=== PATIENT | male | born 1990 | race Two or more races ===

== ENCOUNTER 2020-08-03 05:59 | Inpatient (IN) | payer MEDICAID ==
[~2020-08-03] VITALS: Ht 170.2 cm; Wt 89.9 kg
[2020-08-03] MEDS ORDERED: iohexol 350MG/ML 100ml bottle IV ONE (06:21)
--- NOTE | 2020-08-03 06:35 | NUR ---
Father Nish, bedside.
--- NOTE | 2020-08-03 06:40 | NUR ---
US underway; family bedside
[2020-08-03 06:43] LABS: BASOPHILS # (AUTO) 0.2 X10'3 (0-0.2); BASOPHILS % (AUTO) 1.4 % (0-1); EOSINOPHILS # (AUTO) 0.1 X10'3 (0-0.9); EOSINOPHILS % (AUTO) 0.9 % (0-6); HEMATOCRIT 53.8 % (42.0-52.0); LYMPHOCYTES # (AUTO) 1.8 X10'3 (1.1-4.8); LYMPHOCYTES % (AUTO) 13.4 % (21-51); MEAN CORPUSCULAR HEMOGLOBIN 30.2 PG (27.0-31.0); MEAN CORPUSCULAR HGB CONC 33.6 g/dL (33.0-36.5); MEAN CORPUSCULAR VOLUME 89.8 FL (78-98); MEAN PLATELET VOLUME 8.3 FL (7.4-10.4); MONOCYTES # (AUTO) 1.1 X10'3 (0-0.9); MONOCYTES % (AUTO) 8.7 % (2-12); NEUTROPHILS % (AUTO) 75.6 % (42-75); PLATELET COUNT 300 X10'3 (140-440); RED BLOOD COUNT 5.99 X10'6 (4.70-6.10); RED CELL DISTRIBUTION WIDTH 16.4 % (11.5-14.5); WHITE BLOOD COUNT 13.2 X10'3 (4.5-11.0)
[2020-08-03 06:48] LABS: HEMOGLOBIN 18.1 g/dl (14.0-17.9)
[2020-08-03 06:58] LABS: ALANINE AMINOTRANSFERASE 49 U/L (12-78); ALBUMIN 3.4 G/DL (3.4-5.0); ALBUMIN/GLOBULIN RATIO 0.7 (1.1-1.5); ALKALINE PHOSPHATASE 88 IU/L (46-116); ANION GAP 11 (8-16); ASPARTATE AMINO TRANSFERASE 42 U/L (10-37); BILIRUBIN,TOTAL 0.6 MG/DL (0.1-1.0); BLOOD UREA NITROGEN 24 MG/DL (7-18); BUN/CREATININE RATIO 18.6 (5.4-32.0); CALCIUM 8.9 MG/DL (8.5-10.1); CHLORIDE 101 MMOL/L (99-107); CREATININE 1.29 MG/DL (0.60-1.10); GLUCOSE 167 MG/DL (70-104); POTASSIUM 4.2 MMOL/L (3.5-5.1); SODIUM 135 MMOL/L (135-145); TOTAL CARBON DIOXIDE 23.3 MMOL/L (24-32); TOTAL PROTEIN 8.4 G/DL (6.4-8.2); eGFR 65 ML/MIN
[2020-08-03 07:10] LABS: ETHANOL < 0.010 GM/DL (0.0-0.010)
--- NOTE | 2020-08-03 07:27 | NUR ---
bedside echo underway
--- NOTE | 2020-08-03 07:35 | NUR ---
[facility]
[2020-08-03 07:36] LABS: URINE AMPHETAMINE SCREEN NEGATIVE (Neg); URINE BARBITUATE SCREEN NEGATIVE (Neg); URINE BENZODIAZEPINES SCREEN NEGATIVE (Neg); URINE CANNABINOID SCREEN NEGATIVE (Neg); URINE COCAINE SCREEN NEGATIVE (Neg); URINE METHADONE SCREEN NEGATIVE (Neg); URINE OPIATE SCREEN NEGATIVE (Neg); URINE PHENCYCLIDINE SCREEN NEGATIVE (Neg)
[2020-08-03 07:39] LABS: CLARITY,URINE CLEAR (Clear); COLOR,URINE YELLOW (Yellow); GLUCOSE, URINE NEGATIVE (Neg); KETONES,URINE NEGATIVE (Neg); LEUKOCYTE ESTERASE ,URINE NEGATIVE (Neg); NITRITES, URINE NEGATIVE (Neg); OCCULT BLOOD,URINE NEGATIVE (Neg); PROTEIN,URINE TRACE mg/dl (Neg); UROBILINOGEN,URINE 0.2 E.U/dL (0.2-1.0)
[2020-08-03 07:44] LABS: UA COLLECTION TYPE VOIDED
[2020-08-03 07:46] LABS: BACTERIA,URINE NONE SEEN /HPF (Neg); MUCUS STRANDS NONE SEEN /LPF (Neg); RBC,URINE NONE SEEN /HPF (0-2); SQUAMOUS EPITHELIAL CELL,UR NONE SEEN /LPF (FEW); WBC,URINE 0-4 /HPF (0-4)
[2020-08-03] MEDS ORDERED: furosemide 10 MG/1 ML 10ml inj IV ONE (10:00)
[2020-08-03] MEDS ORDERED: metoclopramide 5 mg/ml inj IV ONE (10:25)
[2020-08-03] MEDS ORDERED: acetaminophen 325mg tablet PO PRN ×2 (10:45)
[2020-08-03] MEDS ORDERED: magnesium hydroxide 30ml (MOM) UD suspension PO PRN (10:45)
[2020-08-03] MEDS ORDERED: ondansetron/PF 4mg/2ml inj IV PRN (10:45)
[2020-08-03] MEDS ORDERED: morphine 2 MG/ML inj. syringe IV PRN (10:45)
[2020-08-03] MEDS ORDERED: potassium Cl 20 mEq SR tablet PO PRN ×2 (10:45)
[2020-08-03] MEDS ORDERED: potassium Cl 40MEQ/1/2NS 520ml 520 ML IV PRN ×2 (10:45)
[2020-08-03] MEDS ORDERED: mag hydrox/Alum hydrox/simeth 30ml oral suspension PO PRN (10:45)
[2020-08-03] MEDS ORDERED: magnesium 4gm in 100ml NS 100 ML IV PRN (10:45)
[2020-08-03] MEDS ORDERED: HYDROcodone/acetaminophen 5mg/325mg tablet PO PRN (10:45)
[2020-08-03] MEDS ORDERED: magnesium 2GM in 50ml NS 50 ML IV PRN (10:45)
[2020-08-03] MEDS ORDERED: magnesium Cl slow-release 64mg tablet PO PRN (10:45)
[2020-08-03] MEDS ORDERED: albuterol 2.5 MG/3 ML nebule NEB SCH (12:00)
[2020-08-03] MEDS ORDERED: methylPREDNISolone sod succ/PF 40mg inj. IV SCH (12:05)
[2020-08-03 12:34] VITALS: BP 167/93
[2020-08-03] MEDS ORDERED: NO HOME MEDS (12:52)
--- NOTE | 2020-08-03 16:18 | NUR ---
PAGER ID: [phone] MESSAGE: [phone] anahi bower , pt bp is170/113 pulse rate 112, will you add something to help with the htn
[2020-08-03] MEDS ORDERED: albuterol 2.5 MG/3 ML nebule NEB PRN (16:25)
[2020-08-03 16:28] VITALS: BP 170/113
[2020-08-03] MEDS: lisinopril 20mg tablet PO SCH (16:52)
[2020-08-03] MEDS: carvedilol 6.25mg tablet PO SCH ×2 (16:53→20:27)
[2020-08-03 18:00] VITALS: BP 131/61
--- NOTE | 2020-08-03 18:14 | NUR ---
Patient in room MED 310. I have received report from Graciela-RAJAN and had the opportunity to ask questions and assume patient care.
[2020-08-03] MEDS ORDERED: methylPREDNISolone sod succ 125mg/2ml vial IV SCH (20:00)
[2020-08-03] MEDS: K and/or MAG REPLACEMENT MC SCH (20:00)
[2020-08-03] MEDS: heparin, porcine 5000 units/ml vial SQ SCH (20:29)
[2020-08-03] MEDS ORDERED: temazepam 15mg capsule PO PRN (21:00)
[2020-08-03 22:00] VITALS: BP 134/72
--- NOTE | 2020-08-04 01:11 | NUR ---
[employer] TENDER CALLED AND REPORTED A THIRD DEGREE BLOCK, I CALLED DR BOSWELL WHO ORDERED A 12 LEAD EKG, CAME AND REVIEWED EKG, STOPPED COREG.
[2020-08-04 02:00] VITALS: BP 134/83
[2020-08-04 06:30] VITALS: BP 148/88
[2020-08-04 06:34] LABS: ALBUMIN 3.2 G/DL (3.4-5.0); ANION GAP 9 (8-16); BLOOD UREA NITROGEN 34 MG/DL (7-18); CALCIUM 9.4 MG/DL (8.5-10.1); CHLORIDE 100 MMOL/L (99-107); CREATININE 1.31 MG/DL (0.60-1.10); GLUCOSE 113 MG/DL (70-104); POTASSIUM 4.5 MMOL/L (3.5-5.1); SODIUM 135 MMOL/L (135-145); TOTAL CARBON DIOXIDE 26.4 MMOL/L (24-32); eGFR 63 ML/MIN
[2020-08-04 06:38] LABS: BASOPHILS # (AUTO) 0.1 X10'3 (0-0.2); BASOPHILS % (AUTO) 0.5 % (0-1); EOSINOPHILS % (AUTO) 0.3 % (0-6); LYMPHOCYTES # (AUTO) 2.3 X10'3 (1.1-4.8); LYMPHOCYTES % (AUTO) 13.4 % (21-51); MEAN CORPUSCULAR HEMOGLOBIN 29.4 PG (27.0-31.0); MEAN CORPUSCULAR HGB CONC 32.7 g/dL (33.0-36.5); MEAN CORPUSCULAR VOLUME 89.9 FL (78-98); MEAN PLATELET VOLUME 8.3 FL (7.4-10.4); MONOCYTES # (AUTO) 1.4 X10'3 (0-0.9); MONOCYTES % (AUTO) 8.6 % (2-12); NEUTROPHILS % (AUTO) 77.2 % (42-75); PLATELET COUNT 339 X10'3 (140-440); RED BLOOD COUNT 6.12 X10'6 (4.70-6.10); RED CELL DISTRIBUTION WIDTH 16.4 % (11.5-14.5); WHITE BLOOD COUNT 16.8 X10'3 (4.5-11.0)
--- NOTE | 2020-08-04 07:02 | NUR ---
Problems reprioritized. Patient report given, questions answered & plan of care reviewed with Pat-RN.
[2020-08-04] MEDS ORDERED: furosemide 40mg/4ml inj IV SCH (08:00)
[2020-08-04] MEDS ORDERED: CefTRIAXone 2gm/D5W 50ml BAG 50 ML IV SCH (08:00)
[2020-08-04] MEDS: K and/or MAG REPLACEMENT MC SCH (08:00)
[2020-08-04] MEDS: lisinopril 20mg tablet PO SCH (08:55)
[2020-08-04] MEDS: heparin, porcine 5000 units/ml vial SQ SCH (08:56)
[2020-08-04 11:00] VITALS: BP 128/74
[2020-08-04] MEDS ORDERED: FURO20TA4 PO (15:09)
[2020-08-04] MEDS ORDERED: LISI20TA28 PO (15:09)
[2020-08-04] MEDS ORDERED: ASPI-1265 PO (15:10)
[2020-08-04] MEDS ORDERED: CARV3.12 PO (15:12)
[2020-08-04] MEDS ORDERED: carVEDilol 3.125mg tablet PO ONE (18:00)
[2020-08-04] MEDS ORDERED: lactobacillus rhamnosus 10,000 MMU CELLS/CAPSULE PO SCH (20:00)
== END 2020-08-04 18:36 | disposition home or self-care (01) | DRG 194 ==
LOC: ER 06:00 → ED HOLD 10:42 → EDBEDREQ 11:19 → MED 3N 11:43
PROVIDERS: ADMIT Internal Medicine; ATTEND Internal Medicine
DX: I50.23 Acute on chronic systolic (congestive) heart failure (principal); I27.20 Pulmonary hypertension, unspecified; J44.9 Chronic obstructive pulmonary disease, unspecified; M1A.9XX0 Chronic gout, unspecified, without tophus (tophi); Z20.822 Contact with and (suspected) exposure to COVID-19
CPT/HCPCS: 36415; 71045; 71275; 80048; 80053; 80305; 80320; 81001; 83735; 83880; 84484; 85025; 87081; 87635; 93005; 93306; 93970; 96375; 97161; 97530; 99285; G0378; J0696; J1644; J1940; J2765; J2920; Q9967

== ENCOUNTER 2020-10-17 16:43 | Inpatient (IN) | payer MEDICAID ==
[~2020-10-17] VITALS: Ht 170.2 cm; Wt 104.2 kg
[~2020-10-17 16:43] MED LIST: CARV3.12 PO; FURO20TA4 PO; LISI20TA28 PO; NO HOME MEDS
[2020-10-17 17:38] LABS: BASOPHILS # (AUTO) 0.1 X10'3 (0-0.2); EOSINOPHILS # (AUTO) 0.4 X10'3 (0-0.9); EOSINOPHILS % (AUTO) 3.8 % (0-6); HEMATOCRIT 45.9 % (42.0-52.0); LYMPHOCYTES # (AUTO) 1.5 X10'3 (1.1-4.8); LYMPHOCYTES % (AUTO) 14.8 % (21-51); MEAN CORPUSCULAR HEMOGLOBIN 29.4 PG (27.0-31.0); MEAN CORPUSCULAR HGB CONC 32.7 g/dL (33.0-36.5); MEAN PLATELET VOLUME 7.3 FL (7.4-10.4); MONOCYTES # (AUTO) 0.7 X10'3 (0-0.9); MONOCYTES % (AUTO) 7.2 % (2-12); NEUTROPHILS # (AUTO) 7.6 X10'3 (1.8-7.7); NEUTROPHILS % (AUTO) 73.2 % (42-75); PLATELET COUNT 449 X10'3 (140-440); RED CELL DISTRIBUTION WIDTH 17.8 % (11.5-14.5); WHITE BLOOD COUNT 10.4 X10'3 (4.5-11.0)
[2020-10-17 17:52] LABS: ALANINE AMINOTRANSFERASE 50 U/L (12-78); ALBUMIN/GLOBULIN RATIO 0.6 (1.1-1.5); ALKALINE PHOSPHATASE 114 IU/L (46-116); ANION GAP 7 (8-16); ASPARTATE AMINO TRANSFERASE 27 U/L (10-37); BILIRUBIN,TOTAL 0.5 MG/DL (0.1-1.0); BLOOD UREA NITROGEN 15 MG/DL (7-18); BUN/CREATININE RATIO 13.2 (5.4-32.0); CALCIUM 8.8 MG/DL (8.5-10.1); CHLORIDE 105 MMOL/L (99-107); CREATININE 1.14 MG/DL (0.60-1.10); POTASSIUM 3.8 MMOL/L (3.5-5.1); SODIUM 137 MMOL/L (135-145); TOTAL CARBON DIOXIDE 24.9 MMOL/L (24-32); TOTAL PROTEIN 7.9 G/DL (6.4-8.2); eGFR 74 ML/MIN
[2020-10-17] MEDS: niCARDipine-NS 40mg/200ml IVPB 200 ML IV SCH ×2 (17:55→18:59)
[2020-10-17 18:19] LABS: ETHANOL < 0.010 GM/DL (0.0-0.010)
[2020-10-17 18:48] LABS: GLUCOSE 140 MG/DL (70-104)
[2020-10-17] MEDS ORDERED: furosemide 10 MG/1 ML 10ml inj IV ONE (19:30)
[2020-10-17] MEDS ORDERED: HYDROcodone/acetaminophen 5mg/325mg tablet PO PRN (20:55)
[2020-10-17] MEDS ORDERED: HYDROmorphone inj. 0.5 MG/0.5 ML DISP.SYRIN IV PRN (20:55)
[2020-10-17] MEDS ORDERED: HYDROcodone/acetaminophen 10/325mg tab PO PRN (20:55)
[2020-10-17] MEDS ORDERED: morphine 2 MG/ML inj. syringe IV PRN ×2 (20:55)
[2020-10-17] MEDS ORDERED: diphenhydrAMINE 25mg capsule PO PRN (20:55)
[2020-10-17] MEDS ORDERED: acetaminophen 650mg rectal suppository RC PRN (20:55)
[2020-10-17] MEDS ORDERED: bisacodyl 10mg suppository rectal RC PRN (20:55)
[2020-10-17] MEDS ORDERED: magnesium hydroxide 30ml (MOM) UD suspension PO PRN (20:55)
[2020-10-17] MEDS ORDERED: ondansetron/PF 4mg/2ml inj IV PRN (20:55)
[2020-10-17] MEDS ORDERED: ondansetron 4mg rapidly disintigrating tab PO PRN (20:55)
[2020-10-17] MEDS ORDERED: diphenhydrAMINE 50 mg/ml inj IV PRN (20:55)
[2020-10-17] MEDS ORDERED: acetaminophen 325mg tablet PO PRN ×2 (20:55)
[2020-10-17] MEDS ORDERED: mag hydrox/Alum hydrox/simeth 30ml oral suspension PO PRN (20:55)
[2020-10-17] MEDS ORDERED: temazepam 15mg capsule PO PRN (21:00)
[2020-10-17 21:34] LABS: D-DIMER 0.69 MG/L FEU (0-0.50); PARTIAL THROMBOPLASTIN TIME 26 SECONDS (22-32)
[2020-10-17 21:55] LABS: CREATINE KINASE 203 U/L (39-308); LIPASE 425 U/L (73-393); MAGNESIUM 1.9 MG/DL (1.5-2.4); PHOSPHORUS 3.7 MG/DL (2.3-4.5)
[2020-10-17 22:00] LABS: HEMOGLOBIN A1C 7.1 % (4.5-6.2)
[2020-10-18 05:50] LABS: BASOPHILS # (AUTO) 0.1 X10'3 (0-0.2); BASOPHILS % (AUTO) 1.2 % (0-1); EOSINOPHILS # (AUTO) 0.3 X10'3 (0-0.9); EOSINOPHILS % (AUTO) 2.4 % (0-6); HEMATOCRIT 40.9 % (42.0-52.0); HEMOGLOBIN 13.4 g/dl (14.0-17.9); LYMPHOCYTES # (AUTO) 1.9 X10'3 (1.1-4.8); LYMPHOCYTES % (AUTO) 18.1 % (21-51); MEAN CORPUSCULAR HEMOGLOBIN 29.6 PG (27.0-31.0); MEAN CORPUSCULAR HGB CONC 32.9 g/dL (33.0-36.5); MEAN CORPUSCULAR VOLUME 90.2 FL (78-98); MEAN PLATELET VOLUME 7.2 FL (7.4-10.4); MONOCYTES # (AUTO) 0.9 X10'3 (0-0.9); MONOCYTES % (AUTO) 8.2 % (2-12); NEUTROPHILS # (AUTO) 7.4 X10'3 (1.8-7.7); NEUTROPHILS % (AUTO) 70.1 % (42-75); PLATELET COUNT 380 X10'3 (140-440); RED BLOOD COUNT 4.53 X10'6 (4.70-6.10); RED CELL DISTRIBUTION WIDTH 17.5 % (11.5-14.5); WHITE BLOOD COUNT 10.6 X10'3 (4.5-11.0)
[2020-10-18 07:15] LABS: ALANINE AMINOTRANSFERASE 50 U/L (12-78); ALBUMIN/GLOBULIN RATIO 0.6 (1.1-1.5); ALKALINE PHOSPHATASE 80 IU/L (46-116); ANION GAP 5 (8-16); ASPARTATE AMINO TRANSFERASE 40 U/L (10-37); BILIRUBIN,TOTAL 0.7 MG/DL (0.1-1.0); BLOOD UREA NITROGEN 16 MG/DL (7-18); BUN/CREATININE RATIO 14.8 (5.4-32.0); CALCIUM 8.8 MG/DL (8.5-10.1); CHLORIDE 104 MMOL/L (99-107); CREATININE 1.08 MG/DL (0.60-1.10); GLUCOSE 101 MG/DL (70-104); POTASSIUM 4.1 MMOL/L (3.5-5.1); SODIUM 135 MMOL/L (135-145); TOTAL CARBON DIOXIDE 26.2 MMOL/L (24-32); TOTAL PROTEIN 7.8 G/DL (6.4-8.2); eGFR 79 ML/MIN
[2020-10-18 07:18] LABS: CHOL/HDL RATIO 5.1 (0.00-4.99); CHOLESTEROL 214 MG/DL (0-200); HDL CHOLESTEROL 42 MG/DL (35-60); LDL CHOLESTEROL 138 MG/DL (50-100); TRIGLYCERIDES 110 MG/DL (20-135)
--- NOTE | 2020-10-18 07:20 | NUR ---
Patient in room ED 11. I have received report from RAJAN Marsh and had the opportunity to ask questions and awaiting pts arrival from ED.
[2020-10-18 07:50] VITALS: BP 160/80
--- NOTE | 2020-10-18 07:55 | NUR ---
Pt arrived from ED, ambulated from wheelchair to bed with standby assist. Alert and Oriented x4. BLL, SRx2, CL within reach, non skid socks on. MRSA swab collected, 2 RN skin check complete. First set of vitals complete.
[2020-10-18] MEDS ORDERED: carVEDilol 3.125mg tablet PO SCH (08:00)
[2020-10-18] MEDS ORDERED: furosemide 10 MG/1 ML 10ml inj IV SCH (08:00)
--- NOTE | 2020-10-18 08:29 | NUR ---
Paged Dr Sifuentes PAGER ID: [phone] MESSAGE: Caity Mayberry [id number] FYI Pt's Trops are elevating 0.07, 0.10, 0.13, 0.27 ? Please advise. Thank you Britni PCU [id number]
[2020-10-18] MEDS: aspirin 81mg tab.chew PO SCH (08:55)
[2020-10-18] MEDS: lisinopril 20mg tablet PO SCH (08:58)
[2020-10-18] MEDS: docusate sod 100mg capsule PO SCH ×2 (08:59→22:02)
[2020-10-18] MEDS: pantoprazole 40mg Tablet.DR PO SCH (08:59)
[2020-10-18] MEDS ORDERED: magnesium Cl slow-release 64mg tablet PO PRN (09:00)
[2020-10-18] MEDS ORDERED: potassium Cl 40MEQ/1/2NS 520ml 520 ML IV PRN (09:00)
[2020-10-18] MEDS ORDERED: heparin 10,000 units/1 ML INJ IV ONE (09:00)
[2020-10-18] MEDS ORDERED: heparin 25,000 UNIT/250ml bag 250 ML IV SCH ×3 (09:00→14:10)
[2020-10-18] MEDS ORDERED: magnesium 4gm in 100ml NS 100 ML IV PRN (09:00)
[2020-10-18] MEDS ORDERED: heparin 10,000 units/1 ML INJ IV PRN ×2 (09:00→14:10)
[2020-10-18] MEDS: atorvastatin 20mg tablet PO SCH (09:00)
[2020-10-18] MEDS ORDERED: potassium Cl 20 mEq SR tablet PO PRN ×2 (09:00)
[2020-10-18] MEDS: heparin, porcine 5000 units/ml vial SQ SCH ×2 (09:01)
[2020-10-18] MEDS ORDERED: metoprolol succinate 25mg (24-HOUR) SR. Tablet PO SCH (09:05)
[2020-10-18] MEDS ORDERED: hydrALAZINE 20mg/ml inj. IV PRN (09:05)
[2020-10-18] MEDS ORDERED: spironolactone 25 MG tablet PO SCH (09:05)
[2020-10-18] MEDS ORDERED: iohexol 350MG/ML 100ml bottle IV ONE (10:01)
[2020-10-18 10:26] LABS: CLARITY,URINE CLEAR (Clear); COLOR,URINE YELLOW (Yellow); GLUCOSE, URINE NEGATIVE (Neg); KETONES,URINE NEGATIVE (Neg); LEUKOCYTE ESTERASE ,URINE NEGATIVE (Neg); NITRITES, URINE NEGATIVE (Neg); OCCULT BLOOD,URINE NEGATIVE (Neg); PH,URINE 6.5 (4.8-8.0); PROTEIN,URINE 100 mg/dl (Neg); UA COLLECTION TYPE CLN CATCH MIDSTREAM
[2020-10-18 10:38] LABS: BACTERIA,URINE NONE SEEN /HPF (Neg); SQUAMOUS EPITHELIAL CELL,UR FEW /LPF (FEW)
[2020-10-18 10:39] LABS: RBC,URINE 0-2 /HPF (0-2); WBC,URINE 0-4 /HPF (0-4)
[2020-10-18 10:41] LABS: URINE AMPHETAMINE SCREEN NEGATIVE (Neg); URINE BARBITUATE SCREEN NEGATIVE (Neg); URINE BENZODIAZEPINES SCREEN NEGATIVE (Neg); URINE CANNABINOID SCREEN NEGATIVE (Neg); URINE COCAINE SCREEN NEGATIVE (Neg); URINE METHADONE SCREEN NEGATIVE (Neg); URINE OPIATE SCREEN NEGATIVE (Neg); URINE PHENCYCLIDINE SCREEN NEGATIVE (Neg)
[2020-10-18 11:00] VITALS: BP 158/74
[2020-10-18] MEDS ORDERED: aminophylline 250mg/10ml inj. IV PRN (11:15)
[2020-10-18] MEDS ORDERED: nitroGLYCERIN 0.4mg SUBLingual tab SL PRN (11:15)
[2020-10-18] MEDS ORDERED: metoprolol tartrate 1mg/ml inj IV PRN (11:15)
[2020-10-18] MEDS ORDERED: regadenoson 0.4mg/5ml syringe IV PRN (11:15)
--- NOTE | 2020-10-18 12:29 | NUR ---
Paged Dr Sifuentes PAGER ID: [phone] MESSAGE: Caity Mayberry [id number] FYI Trop was 0.40, up from 0.30. Thanks Britni PCU [id number]
[2020-10-18] MEDS ORDERED: MESSAGE TO PHARMACY PO ONE (12:35)
[2020-10-18] MEDS ORDERED: dextrose 50%-water 50ml dispensing syringe IV PRN ×2 (12:35)
[2020-10-18] MEDS ORDERED: glucagon, human recombinant 1mg kit SUBCUT PRN (12:35)
[2020-10-18] MEDS ORDERED: dextrose ORAL solution 15 GM/59 ML bottle PO PRN ×2 (12:35)
--- NOTE | 2020-10-18 14:09 | NUR ---
Paged Dr Sifuentes PAGER ID: [phone] MESSAGE: Joan Rafal Malikcordelia [id number] FYI Pt has been having non sustaining Indra into the 30-40's, but back up to the one teens. Thanks Britni [phone] Laurie Nowak, HOME SERVICE DEMONSTRATOR also aware of Bradycardia.
[2020-10-18] MEDS ORDERED: ipratropium/albuterol 3ml nebule NEB PRN (14:30)
[2020-10-18] MEDS ORDERED: methylPREDNISolone sod succ 125mg/2ml vial IV ONE (14:30)
[2020-10-18 15:00] VITALS: BP 132/102
[2020-10-18] MEDS: ipratropium/albuterol 3ml nebule NEB SCH ×3 (15:00→23:00)
--- NOTE | 2020-10-18 15:37 | NUR ---
Paged Bear PAGER ID: [phone] MESSAGE: Caity Mayberry [id number] Do you want a rapid COVID or send out? Thanks Britni [phone]
--- NOTE | 2020-10-18 16:40 | NUR ---
Paged Dr Sifuentes with critical PAGER ID: [phone] MESSAGE: Caity Mayberry [id number] Critical PTT 137. Will stop heparin and follow protocol. Thanks Britni [phone]
--- NOTE | 2020-10-18 16:45 | NUR ---
Pt's PTT came back at 137, stopped Heparin Gtt per protocol for 2 hours. Heparin needs to be restarted at 1845, and decreased 3 units/k/hr. Will inform the NOC nurse.
--- NOTE | 2020-10-18 17:01 | NUR ---
Paged Dr Sifuentes PAGER ID: [phone] MESSAGE: Caity Mayberry [id number] Pt c/o increased SOB, diaphoretic, getting stat EKG, are you in the office so I can have you read it? Thank you Britni eHath [id number]
[2020-10-18 18:00] VITALS: BP 139/84
--- NOTE | 2020-10-18 18:43 | NUR ---
Problems reprioritized. Patient report given, questions answered & plan of care reviewed with RAJAN Henry. Pt sitting up in bed, getting a consult with Dr Yanez.
[2020-10-18] MEDS: K and/or MAG REPLACEMENT MC SCH (20:00)
--- NOTE | 2020-10-18 20:15 | NUR ---
Phoned Dr. Yanez to inform him of patient starting to move into 3rd degree heart block. And did have some of this on day shift as well.
--- NOTE | 2020-10-18 20:35 | NUR ---
Spoke with Dr. Yanez about the rhythm after her looked at two strips. He states the patient is likely in sinus atrial block. No new orders given.
[2020-10-18] MEDS: insulin glargine (Lantus) pen - multi-dose SQ SCH (21:00)
[2020-10-18 22:00] VITALS: BP 133/89
[2020-10-18] MEDS: methylPREDNISolone sod succ/PF 40mg inj. IV SCH (22:02)
[2020-10-18] MEDS: furosemide 10 MG/1 ML 10ml inj IV SCH (22:02)
[2020-10-19 01:39] LABS: BASOPHILS # (AUTO) 0.1 X10'3 (0-0.2); BASOPHILS % (AUTO) 0.6 % (0-1); EOSINOPHILS % (AUTO) 0.1 % (0-6); HEMATOCRIT 50.5 % (42.0-52.0); HEMOGLOBIN 16.4 g/dl (14.0-17.9); LYMPHOCYTES # (AUTO) 0.9 X10'3 (1.1-4.8); LYMPHOCYTES % (AUTO) 8.4 % (21-51); MEAN CORPUSCULAR HEMOGLOBIN 29.2 PG (27.0-31.0); MEAN CORPUSCULAR HGB CONC 32.5 g/dL (33.0-36.5); MEAN PLATELET VOLUME 7.9 FL (7.4-10.4); MONOCYTES # (AUTO) 0.1 X10'3 (0-0.9); MONOCYTES % (AUTO) 0.9 % (2-12); NEUTROPHILS # (AUTO) 9.6 X10'3 (1.8-7.7); PLATELET COUNT 491 X10'3 (140-440); RED BLOOD COUNT 5.61 X10'6 (4.70-6.10); RED CELL DISTRIBUTION WIDTH 17.5 % (11.5-14.5); WHITE BLOOD COUNT 10.7 X10'3 (4.5-11.0)
[2020-10-19 01:58] LABS: ALANINE AMINOTRANSFERASE 73 U/L (12-78); ALBUMIN 3.3 G/DL (3.4-5.0); ALBUMIN/GLOBULIN RATIO 0.6 (1.1-1.5); ALKALINE PHOSPHATASE 80 IU/L (46-116); ANION GAP 13 (8-16); ASPARTATE AMINO TRANSFERASE 51 U/L (10-37); BILIRUBIN,TOTAL 0.8 MG/DL (0.1-1.0); BLOOD UREA NITROGEN 31 MG/DL (7-18); BUN/CREATININE RATIO 17.8 (5.4-32.0); CALCIUM 9.3 MG/DL (8.5-10.1); CHLORIDE 100 MMOL/L (99-107); CREATININE 1.74 MG/DL (0.60-1.10); POTASSIUM 5.5 MMOL/L (3.5-5.1); SODIUM 137 MMOL/L (135-145); TOTAL CARBON DIOXIDE 24.3 MMOL/L (24-32); TOTAL PROTEIN 8.7 G/DL (6.4-8.2); eGFR 46 ML/MIN
[2020-10-19 01:59] LABS: MAGNESIUM 2.2 MG/DL (1.5-2.4); PHOSPHORUS 4.4 MG/DL (2.3-4.5); TROPONIN I 0.21 NG/ML (0.0-0.05)
[2020-10-19 02:00] VITALS: BP 121/96
[2020-10-19] MEDS: methylPREDNISolone sod succ/PF 40mg inj. IV SCH ×4 (02:10→19:30)
[2020-10-19 02:14] LABS: GLUCOSE 196 MG/DL (70-104)
[2020-10-19] MEDS: sodium bicarbonate (8.4%) inj. 50 MEQ in dextrose 5%-water 1,000 ML IV SCH ×2 (05:41→15:18)
[2020-10-19 07:00] VITALS: BP 130/80
--- NOTE | 2020-10-19 07:20 | NUR ---
Paged Laurie Nowak, DARON Re Caity Malik [id number] Pt has documented 3 degree heart block, Vini from [facility] said he can't do efrain scan. Please advise, thanks. [phone]
[2020-10-19] MEDS: ipratropium/albuterol 3ml nebule NEB SCH ×5 (07:22→22:49)
[2020-10-19] MEDS: atorvastatin 20mg tablet PO SCH (07:33)
[2020-10-19] MEDS: docusate sod 100mg capsule PO SCH ×2 (07:33→19:30)
[2020-10-19] MEDS: pantoprazole 40mg Tablet.DR PO SCH (07:34)
[2020-10-19] MEDS: furosemide 10 MG/1 ML 10ml inj IV SCH ×2 (07:36→19:25)
[2020-10-19] MEDS ORDERED: metoprolol succinate 25mg (24-HOUR) SR. Tablet PO SCH (08:00)
[2020-10-19] MEDS: K and/or MAG REPLACEMENT MC SCH ×2 (08:00→20:00)
[2020-10-19] MEDS: aspirin 81mg tab.chew PO SCH (09:43)
[2020-10-19] MEDS: lisinopril 20mg tablet PO SCH (09:46)
[2020-10-19] MEDS: insulin glargine (Lantus) pen - multi-dose SQ SCH ×2 (10:45→22:37)
[2020-10-19 11:00] VITALS: BP 138/70
--- NOTE | 2020-10-19 11:51 | NUR ---
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 Pt with A1c of 7.1% with no PMH DM, will need to be on PO hypoglycemics at discharge per MD note. TC to bedside RN who reports pt has not received DM diagnosis by physician at this time. Informed RN that RD is unable to provide DM education until pt receives official diagnosis by physician. Pt currently on a heart healthy CHO controlled diet, documented with 100% PO intake first meal down to 25% PO intake at second meal. Noted pt documented to be NPO at breakfast this morning. LBM 10/18. Will continue to follow closely. Recommendations: 1) Continue heart healthy CHO controlled diet 2) Routine bowel care 3) Scaled weight per rx 4) DM education once stable following official DM dx by physician; A1c 7.1% Addendum: 10/19/20 at [address] Amended: Links added.
[2020-10-19] MEDS: insulin Lispro (HumaLOG) vial - multi-dose SQ SCH ×2 (14:29→19:38)
[2020-10-19 15:00] VITALS: BP 150/107
[2020-10-19 18:25] VITALS: BP 137/77
--- NOTE | 2020-10-19 18:39 | NUR ---
Problems reprioritized. Patient report given, questions answered & plan of care reviewed with RAJAN Marroquin. Pt sleeping comfortably at change of shift. No signs of distress noted. All pt needs met at this time.
--- NOTE | 2020-10-19 18:42 | NUR ---
Patient in room PCU 3012. I have received report from Britni TOLENTINO and had the opportunity to ask questions and assume patient care.
[2020-10-19 22:09] VITALS: BP 146/74
--- NOTE | 2020-10-19 23:11 | NUR ---
Entered patient's room with aide to go over consent and prep for the procedure, as well as administer lantus. Patient was initially gruff but agreeable. After addressing the details of the cath prep, patient became resistant to care stating "but what about my rest? can't I get some rest?" after explaining that the cath prep would be the last major thing needed, patient still refused. I attempted to reiterate the importance of the procedure, to which the patient responded that he "could leave right now if that's what you'd prefer. Call the Doctor, I don't care." I addressed this development with the Charge Nurse and she accompanied me to the patient's room. When she addressed the patient about the care in question, the patient reiterated that he would not go through with the prep and the operation at this time, and would refuse all subsequent care.
[2020-10-20] MEDS ORDERED: sodium polystyrene sulfonate 15gm/60ml oral suspension PO ONE (00:20)
[2020-10-20] MEDS: methylPREDNISolone sod succ/PF 40mg inj. IV SCH ×2 (01:55→09:56)
--- NOTE | 2020-10-20 02:12 | NUR ---
Patient has continued to refuse surgery preparation while accepting scheduled medications. continued attempts to convince patient of the necessity of the procedure are unsuccessful.
[2020-10-20] MEDS ORDERED: heparin 25,000 UNIT/250ml bag 250 ML IV SCH (02:32)
[2020-10-20] MEDS: ipratropium/albuterol 3ml nebule NEB SCH ×2 (03:22→08:02)
--- NOTE | 2020-10-20 03:38 | NUR ---
Patient refused to have his vitals taken, has refused various care and medications throughout the night as noted in previous notes Addendum: 10/20/20 at 0339 by Lopez Phillips RN Amended: Links added.
--- NOTE | 2020-10-20 03:43 | NUR ---
as stated in previous notes, patient has adamantly refused cardiac catheterization after being approached with the consent form and the hygiene preparation. Multiple attempts have been made to convince patient of the necessity of this procedure Addendum: 10/20/20 at 0345 by Lopez Phillips RN Amended: Links added.
[2020-10-20 06:27] LABS: BASOPHILS % (AUTO) 0.1 % (0-1); EOSINOPHILS % (AUTO) 0 % (0-6); HEMATOCRIT 46.8 % (42.0-52.0); HEMOGLOBIN 15.1 g/dl (14.0-17.9); LYMPHOCYTES # (AUTO) 0.6 X10'3 (1.1-4.8); LYMPHOCYTES % (AUTO) 2.7 % (21-51); MEAN CORPUSCULAR HEMOGLOBIN 29.3 PG (27.0-31.0); MEAN CORPUSCULAR HGB CONC 32.3 g/dL (33.0-36.5); MEAN CORPUSCULAR VOLUME 90.7 FL (78-98); MEAN PLATELET VOLUME 7.5 FL (7.4-10.4); MONOCYTES # (AUTO) 0.5 X10'3 (0-0.9); MONOCYTES % (AUTO) 2.5 % (2-12); NEUTROPHILS # (AUTO) 20.4 X10'3 (1.8-7.7); NEUTROPHILS % (AUTO) 94.7 % (42-75); PLATELET COUNT 466 X10'3 (140-440); RED BLOOD COUNT 5.16 X10'6 (4.70-6.10); RED CELL DISTRIBUTION WIDTH 17.2 % (11.5-14.5); WHITE BLOOD COUNT 21.6 X10'3 (4.5-11.0)
[2020-10-20 06:48] LABS: ALANINE AMINOTRANSFERASE 72 U/L (12-78); ALBUMIN 3.1 G/DL (3.4-5.0); ALBUMIN/GLOBULIN RATIO 0.7 (1.1-1.5); ALKALINE PHOSPHATASE 71 IU/L (46-116); ANION GAP 10 (8-16); ASPARTATE AMINO TRANSFERASE 49 U/L (10-37); BILIRUBIN,TOTAL 0.6 MG/DL (0.1-1.0); BLOOD UREA NITROGEN 40 MG/DL (7-18); CHLORIDE 104 MMOL/L (99-107); CREATININE 1.43 MG/DL (0.60-1.10); GLUCOSE 149 MG/DL (70-104); MAGNESIUM 2.1 MG/DL (1.5-2.4); PHOSPHORUS 5.1 MG/DL (2.3-4.5); POTASSIUM 4.3 MMOL/L (3.5-5.1); SODIUM 141 MMOL/L (135-145); TOTAL CARBON DIOXIDE 27.4 MMOL/L (24-32); TOTAL PROTEIN 7.7 G/DL (6.4-8.2); eGFR 57 ML/MIN
[2020-10-20 07:00] VITALS: BP 130/86
--- NOTE | 2020-10-20 07:10 | NUR ---
Problems reprioritized. Patient report given, questions answered & plan of care reviewed with Pat RN.
[2020-10-20] MEDS: docusate sod 100mg capsule PO SCH (09:56)
[2020-10-20 09:57] VITALS: BP_SYST 130
[2020-10-20] MEDS: lisinopril 20mg tablet PO SCH (09:57)
[2020-10-20] MEDS: pantoprazole 40mg Tablet.DR PO SCH (09:58)
[2020-10-20] MEDS: aspirin 81mg tab.chew PO SCH (09:58)
[2020-10-20] MEDS: atorvastatin 20mg tablet PO SCH (09:58)
[2020-10-20] MEDS: furosemide 10 MG/1 ML 10ml inj IV SCH (09:59)
--- NOTE | 2020-10-20 10:00 | NUR ---
DR. PATEL INTO SEE PATIENT AND REVIEW NEED AND PLAN FOR HEART CATH; HOWEVER, PATIENT REFUSES ANY AND ALL CARE AT THIS TIME. Addendum: 10/20/20 at 1402 by Tracy Pardo RN Amended: Links added.
--- NOTE | 2020-10-20 11:52 | NUR ---
Patient wanted to leave AMA. Patient's Mother at bedside with Dr. Sifuentes. MD explained pros/cons of staying/leaving AMA. Patient and Patient's are aware. Patient was educated on all educational needs. Patient signed AMA formed with nurse and mother at bedside. Both PIV were removed and wrapped. Patient educated on heparin and risk of bleeding. Arms were wrapped with Coban and pt told to leave on at least til 20 mins. AMA form was completed and put into chart. Tele removed and returned to unit. All personal items were collected and sent with patient. Patient clothed self and mother and patient were able to ambulate self to elevator and taken to front lobby. MD aware pt has left.
== END 2020-10-20 12:00 | disposition left against medical advice (07) | DRG 194 ==
LOC: ER 16:44 → ED HOLD 20:57 → PCU 3S 10-18 07:55
PROVIDERS: ADMIT Family Medicine; ATTEND Family Medicine
PROC: B32T1ZZ Computerized Tomography (CT Scan) of Left Pulmonary Artery using Low Osmolar Contrast (ICD-10-PCS; principal; 2020-10-18)
PROC: B3201ZZ Computerized Tomography (CT Scan) of Thoracic Aorta using Low Osmolar Contrast (ICD-10-PCS; 2020-10-18)
PROC: B32S1ZZ Computerized Tomography (CT Scan) of Right Pulmonary Artery using Low Osmolar Contrast (ICD-10-PCS; 2020-10-18)
DX: I11.0 Hypertensive heart disease with heart failure (principal); J96.20 Acute and chronic respiratory failure, unspecified whether with hypoxia or hypercapnia; I21.A1 Myocardial infarction type 2; I44.2 Atrioventricular block, complete; I50.23 Acute on chronic systolic (congestive) heart failure; N17.9 Acute kidney failure, unspecified; Z53.29 Procedure and treatment not carried out because of patient's decision for other reasons; I42.7 Cardiomyopathy due to drug and external agent; J44.1 Chronic obstructive pulmonary disease with (acute) exacerbation; E11.65 Type 2 diabetes mellitus with hyperglycemia; I16.1 Hypertensive emergency; F17.200 Nicotine dependence, unspecified, uncomplicated; R00.0 Tachycardia, unspecified; R00.1 Bradycardia, unspecified; E66.9 Obesity, unspecified; E78.5 Hyperlipidemia, unspecified; F15.20 Other stimulant dependence, uncomplicated; Z20.822 Contact with and (suspected) exposure to COVID-19; Z79.899 Other long term (current) drug therapy; Z91.19 Patient's noncompliance with other medical treatment and regimen; Z68.36 Body mass index [BMI] 36.0-36.9, adult; Z71.6 Tobacco abuse counseling; E87.5 Hyperkalemia
CPT/HCPCS: 36415; 71045; 71275; 80053; 80061; 80305; 80320; 81001; 82550; 82948; 83036; 83690; 83735; 83880; 84100; 84145; 84443; 84484; 85025; 85379; 85610; 85730; 87081; 87635; 93005; 93308; 94640; 94664; 94760; 96374; 96375; 96376; 99285; G0378; J1644; J1815; J1940; J2920; J2930; Q9967

== ENCOUNTER 2021-09-25 23:47 | Emergency (ER) | payer MEDICAID ==
[~2021-09-25] VITALS: Ht 170.2 cm; Wt 86.4 kg
[~2021-09-25 23:47] MED LIST changes: +AMLO2.5T5 PO; +ASPI-1144 PO; +ATOR40TA72 PO; -CARV3.12 PO; +CARV3.122 PO; -LISI20TA28 PO; -NO HOME MEDS; +PANT40TA54 PO
[2021-09-26 00:04] VITALS: BP 123/86
[2021-09-26 01:08] LABS: CLARITY,URINE Clear (Clear); COLOR,URINE YELLOW (Yellow); UA COLLECTION TYPE CLN CATCH MIDSTREAM
[2021-09-26 01:09] LABS: GLUCOSE, URINE NEGATIVE (Neg); KETONES,URINE NEGATIVE (Neg); LEUKOCYTE ESTERASE ,URINE NEGATIVE (Neg); NITRITES, URINE NEGATIVE (Neg); OCCULT BLOOD,URINE NEGATIVE (Neg); PROTEIN,URINE NEGATIVE (Neg); UROBILINOGEN,URINE 0.2 E.U/dL (0.2-1.0)
== END 2021-09-26 01:33 | disposition left against medical advice (07) ==
LOC: ER 23:48
DX: R10.9 Unspecified abdominal pain (principal); Z53.21 Procedure and treatment not carried out due to patient leaving prior to being seen by health care provider
CPT/HCPCS: 81003

== ENCOUNTER 2021-09-26 05:02 | Emergency (ER) | payer MEDICAID ==
[~2021-09-26] VITALS: Ht 167.6 cm; Wt 86.4 kg
--- NOTE | 2021-09-26 07:33 | NUR ---
labs drawn late d/t no lab in Ed.
[2021-09-26 07:54] LABS: BASOPHILS # (AUTO) 0.1 X10'3 (0-0.2); BASOPHILS % (AUTO) 0.7 % (0-1); EOSINOPHILS % (AUTO) 0.6 % (0-6); HEMATOCRIT 47.7 % (42.0-52.0); LYMPHOCYTES # (AUTO) 0.9 X10'3 (1.1-4.8); LYMPHOCYTES % (AUTO) 11.7 % (21-51); MEAN CORPUSCULAR HEMOGLOBIN 30.8 PG (27.0-31.0); MEAN CORPUSCULAR HGB CONC 33.5 g/dL (33.0-36.5); MEAN CORPUSCULAR VOLUME 92.1 FL (78-98); MEAN PLATELET VOLUME 7.7 FL (7.4-10.4); MONOCYTES # (AUTO) 0.9 X10'3 (0-0.9); MONOCYTES % (AUTO) 10.9 % (2-12); NEUTROPHILS % (AUTO) 76.1 % (42-75); PLATELET COUNT 279 X10'3 (140-440); RED BLOOD COUNT 5.18 X10'6 (4.70-6.10); RED CELL DISTRIBUTION WIDTH 17.5 % (11.5-14.5); WHITE BLOOD COUNT 7.9 X10'3 (4.5-11.0)
[2021-09-26 08:06] LABS: ALANINE AMINOTRANSFERASE 34 U/L (12-78); ALBUMIN 3.9 G/DL (3.4-5.0); ALBUMIN/GLOBULIN RATIO 0.7 (1.1-1.5); ALKALINE PHOSPHATASE 112 IU/L (46-116); ANION GAP 12 (8-16); ASPARTATE AMINO TRANSFERASE 40 U/L (10-37); BILIRUBIN,TOTAL 1.7 MG/DL (0.1-1.0); BLOOD UREA NITROGEN 25 MG/DL (7-18); BUN/CREATININE RATIO 26.6 (5.4-32.0); CALCIUM 9.7 MG/DL (8.5-10.1); CHLORIDE 100 MMOL/L (99-107); CREATININE 0.94 MG/DL (0.60-1.10); GLUCOSE 128 MG/DL (70-104); LIPASE 111 U/L (73-393); POTASSIUM 4.7 MMOL/L (3.5-5.1); SODIUM 136 MMOL/L (135-145); TOTAL CARBON DIOXIDE 23.9 MMOL/L (24-32); TOTAL PROTEIN 9.3 G/DL (6.4-8.2); eGFR > 90 ML/MIN
[2021-09-26 08:21] VITALS: BP 148/106
[2021-09-26] MEDS ORDERED: ibuprofen tablet 400 MG TABLET PO ONE (09:25)
== END 2021-09-26 09:41 | disposition home or self-care (01) ==
LOC: ER 05:02
DX: K42.9 Umbilical hernia without obstruction or gangrene (principal); I50.9 Heart failure, unspecified; Z87.19 Personal history of other diseases of the digestive system; F15.10 Other stimulant abuse, uncomplicated; Z79.899 Other long term (current) drug therapy; Z79.82 Long term (current) use of aspirin
CPT/HCPCS: 36415; 80053; 83690; 85025; 99283

== ENCOUNTER 2021-10-12 08:40 | Emergency (ER) | payer MEDICAID ==
[~2021-10-12] VITALS: Ht 170.2 cm; Wt 190.0 kg
[2021-10-12] MEDS ORDERED: aspirin 81mg tab.chew PO ONE (09:00)
[2021-10-12 09:37] VITALS: BP 136/105
[2021-10-12] MEDS ORDERED: furosemide 40mg/4ml inj IV ONE (09:40)
[2021-10-12 09:44] LABS: EOSINOPHILS # (AUTO) 0.3 X10'3 (0-0.9); HEMATOCRIT 42.7 % (42.0-52.0); HEMOGLOBIN 13.9 g/dl (14.0-17.9); MEAN CORPUSCULAR VOLUME 92.9 FL (78-98); WHITE BLOOD COUNT 8.4 X10'3 (4.5-11.0)
[2021-10-12 09:46] LABS: BASOPHILS # (AUTO) 0.1 X10'3 (0-0.2); BASOPHILS % (AUTO) 0.8 % (0-1); EOSINOPHILS % (AUTO) 3.7 % (0-6); LYMPHOCYTES # (AUTO) 1.1 X10'3 (1.1-4.8); LYMPHOCYTES % (AUTO) 12.7 % (21-51); MEAN CORPUSCULAR HEMOGLOBIN 30.1 PG (27.0-31.0); MEAN CORPUSCULAR HGB CONC 32.4 g/dL (33.0-36.5); MEAN PLATELET VOLUME 8.5 FL (7.4-10.4); MONOCYTES # (AUTO) 0.9 X10'3 (0-0.9); MONOCYTES % (AUTO) 10.6 % (2-12); NEUTROPHILS # (AUTO) 6.1 X10'3 (1.8-7.7); NEUTROPHILS % (AUTO) 72.2 % (42-75); PLATELET COUNT 244 X10'3 (140-440); RED CELL DISTRIBUTION WIDTH 17.4 % (11.5-14.5)
[2021-10-12 09:56] LABS: APTT 30 SECONDS (22-32)
[2021-10-12 10:06] LABS: ALANINE AMINOTRANSFERASE 29 U/L (12-78); ALBUMIN 3.5 G/DL (3.4-5.0); ALBUMIN/GLOBULIN RATIO 0.8 (1.1-1.5); ALKALINE PHOSPHATASE 124 IU/L (46-116); ANION GAP 11 (8-16); ASPARTATE AMINO TRANSFERASE 28 U/L (10-37); BILIRUBIN,TOTAL 0.9 MG/DL (0.1-1.0); BLOOD UREA NITROGEN 23 MG/DL (7-18); BUN/CREATININE RATIO 20.7 (5.4-32.0); CALCIUM 8.5 MG/DL (8.5-10.1); CHLORIDE 105 MMOL/L (99-107); CREATININE 1.11 MG/DL (0.60-1.10); GLUCOSE 94 MG/DL (70-104); LIPASE 169 U/L (73-393); MAGNESIUM 1.5 MG/DL (1.5-2.4); POTASSIUM 3.9 MMOL/L (3.5-5.1); SODIUM 138 MMOL/L (135-145); TOTAL CARBON DIOXIDE 22.4 MMOL/L (24-32); eGFR 76 ML/MIN
[2021-10-12] MEDS ORDERED: AMIO200T61 PO (10:25)
[2021-10-12] MEDS ORDERED: QUET25TA36 PO (10:25)
[2021-10-12] MEDS ORDERED: FURO40TA4 PO (10:25)
[2021-10-12] MEDS ORDERED: SACU1TAB7 PO (10:25)
== END 2021-10-12 10:35 | disposition left against medical advice (07) ==
LOC: ER 08:41
DX: I50.33 Acute on chronic diastolic (congestive) heart failure (principal); F15.90 Other stimulant use, unspecified, uncomplicated; I27.20 Pulmonary hypertension, unspecified; Z79.899 Other long term (current) drug therapy; Z86.73 Personal history of transient ischemic attack (TIA), and cerebral infarction without residual deficits; Z87.01 Personal history of pneumonia (recurrent); Z86.19 Personal history of other infectious and parasitic diseases; Z72.89 Other problems related to lifestyle; Z79.82 Long term (current) use of aspirin
CPT/HCPCS: 36415; 71045; 80053; 83690; 83735; 83880; 84484; 85025; 85610; 85730; 93005; 96374; 99285; J1940

== ENCOUNTER 2022-02-16 20:12 | Emergency (ER) | payer MEDICAID ==
[~2022-02-16] VITALS: Ht 170.2 cm; Wt 84.1 kg
[~2022-02-16 20:12] MED LIST changes: +QUET25TA36 PO; +SACU1TAB7 PO
[2022-02-16 21:05] LABS: BASOPHILS # (AUTO) 0.1 X10'3 (0-0.2); BASOPHILS % (AUTO) 1.2 % (0-1); EOSINOPHILS # (AUTO) 0.2 X10'3 (0-0.9); EOSINOPHILS % (AUTO) 2.1 % (0-6); HEMATOCRIT 43.9 % (42.0-52.0); HEMOGLOBIN 13.8 g/dl (14.0-17.9); LYMPHOCYTES # (AUTO) 1.1 X10'3 (1.1-4.8); LYMPHOCYTES % (AUTO) 10.6 % (21-51); MEAN CORPUSCULAR HEMOGLOBIN 28.5 PG (27.0-31.0); MEAN CORPUSCULAR HGB CONC 31.3 g/dL (33.0-36.5); MEAN CORPUSCULAR VOLUME 91.1 FL (78-98); MEAN PLATELET VOLUME 7.8 FL (7.4-10.4); MONOCYTES % (AUTO) 8.8 % (2-12); NEUTROPHILS # (AUTO) 8.3 X10'3 (1.8-7.7); NEUTROPHILS % (AUTO) 77.3 % (42-75); PLATELET COUNT 276 X10'3 (140-440); RED BLOOD COUNT 4.82 X10'6 (4.70-6.10); RED CELL DISTRIBUTION WIDTH 16.3 % (11.5-14.5); WHITE BLOOD COUNT 10.8 X10'3 (4.5-11.0)
[2022-02-16 21:11] LABS: ALANINE AMINOTRANSFERASE 45 U/L (12-78); ALBUMIN 2.6 G/DL (3.4-5.0); ALBUMIN/GLOBULIN RATIO 0.5 (1.1-1.5); ALKALINE PHOSPHATASE 110 IU/L (46-116); ANION GAP 8 (8-16); ASPARTATE AMINO TRANSFERASE 32 U/L (10-37); BILIRUBIN,TOTAL 0.8 MG/DL (0.1-1.0); BLOOD UREA NITROGEN 21 MG/DL (7-18); BUN/CREATININE RATIO 14.4 (5.4-32.0); CALCIUM 8.4 MG/DL (8.5-10.1); CHLORIDE 100 MMOL/L (99-107); CREATININE 1.46 MG/DL (0.60-1.10); GLUCOSE 124 MG/DL (70-104); POTASSIUM 3.4 MMOL/L (3.5-5.1); SODIUM 137 MMOL/L (135-145); TOTAL CARBON DIOXIDE 28.9 MMOL/L (24-32); TOTAL PROTEIN 7.8 G/DL (6.4-8.2); eGFR 56 ML/MIN
[2022-02-16] MEDS ORDERED: furosemide 10 MG/1 ML 10ml inj IV ONE (21:35)
[2022-02-16 22:46] LABS: URINE AMPHETAMINE SCREEN NEGATIVE (Neg); URINE BARBITUATE SCREEN NEGATIVE (Neg); URINE BENZODIAZEPINES SCREEN NEGATIVE (Neg); URINE CANNABINOID SCREEN NEGATIVE (Neg); URINE COCAINE SCREEN NEGATIVE (Neg); URINE METHADONE SCREEN NEGATIVE (Neg); URINE OPIATE SCREEN NEGATIVE (Neg); URINE PHENCYCLIDINE SCREEN NEGATIVE (Neg)
[2022-02-16] MEDS ORDERED: AMOX-117 PO (23:10)
[2022-02-16] MEDS ORDERED: FURO40TA4 PO (23:10)
--- NOTE | 2022-02-16 23:49 | NUR ---
Pt requested not to be admitted to the hospital. notified. Pt. vvs, not c/o chest pain or sob. Pt has a productive cough
[2022-02-16 23:51] VITALS: BP 156/118
== END 2022-02-16 23:53 | disposition home or self-care (01) ==
LOC: ER 20:12
DX: J02.9 Acute pharyngitis, unspecified (principal); Z20.822 Contact with and (suspected) exposure to COVID-19; I50.9 Heart failure, unspecified; F15.10 Other stimulant abuse, uncomplicated; R74.8 Abnormal levels of other serum enzymes; Z87.19 Personal history of other diseases of the digestive system
CPT/HCPCS: 36415; 71045; 80053; 80305; 83880; 84484; 85025; 87081; 87502; 87503; 87635; 87880; 93005; 96374; 99285; C9803; J1940

== ENCOUNTER 2023-01-21 06:23 | Inpatient (IN) | payer MEDICAID ==
[~2023-01-21] VITALS: Ht 177.8 cm; Wt 86.4 kg
[2023-01-21 07:08] LABS: BASOPHILS # (AUTO) 0.1 X10'3 (0-0.2); BASOPHILS % (AUTO) 1.3 % (0-1); EOSINOPHILS # (AUTO) 0.2 X10'3 (0-0.9); EOSINOPHILS % (AUTO) 1.5 % (0-6); HEMATOCRIT 48.5 % (42.0-52.0); HEMOGLOBIN 15.3 g/dl (14.0-17.9); LYMPHOCYTES # (AUTO) 2.3 X10'3 (1.1-4.8); LYMPHOCYTES % (AUTO) 20.7 % (21-51); MEAN CORPUSCULAR HEMOGLOBIN 28.3 PG (27.0-31.0); MEAN CORPUSCULAR HGB CONC 31.6 g/dL (33.0-36.5); MEAN CORPUSCULAR VOLUME 89.6 FL (78-98); MEAN PLATELET VOLUME 7.6 FL (7.4-10.4); MONOCYTES % (AUTO) 8.7 % (2-12); NEUTROPHILS # (AUTO) 7.5 X10'3 (1.8-7.7); NEUTROPHILS % (AUTO) 67.8 % (42-75); PLATELET COUNT 358 X10'3 (140-440); RED BLOOD COUNT 5.42 X10'6 (4.70-6.10); RED CELL DISTRIBUTION WIDTH 16.7 % (11.5-14.5)
[2023-01-21] MEDS ORDERED: hydrALAZINE 20mg/ml inj. IV ONE (07:15)
[2023-01-21 07:23] LABS: ALANINE AMINOTRANSFERASE 49 U/L (12-78); ALBUMIN 2.8 G/DL (3.4-5.0); ALBUMIN/GLOBULIN RATIO 0.7 (1.1-1.5); ALKALINE PHOSPHATASE 99 IU/L (46-116); ANION GAP 10 (8-16); ASPARTATE AMINO TRANSFERASE 45 U/L (10-37); BILIRUBIN,TOTAL 0.7 MG/DL (0.1-1.0); BLOOD UREA NITROGEN 30 MG/DL (7-18); BUN/CREATININE RATIO 22.2 (10.0-20.0); CALCIUM 8.6 MG/DL (8.5-10.1); CHLORIDE 103 MMOL/L (99-107); CREATININE 1.35 MG/DL (0.60-1.10); GLUCOSE 109 MG/DL (70-104); POTASSIUM 4.6 MMOL/L (3.5-5.1); SODIUM 137 MMOL/L (135-145); TOTAL PROTEIN 7.1 G/DL (6.4-8.2); eCRCL 80 ML/MIN; eGFR 60 ML/MIN
[2023-01-21 07:34] LABS: MAGNESIUM 1.9 MG/DL (1.5-2.4); PRO BRAIN NATRIURETIC PEPTIDE 3215 PG/ML (0-125)
[2023-01-21] MEDS ORDERED: labetalol 20mg/4ml (5mg/ml) syringe IV PRN (07:35)
[2023-01-21 07:50] LABS: BILIRUBIN,URINE NEGATIVE (Neg); CLARITY,URINE CLEAR (Clear); COLOR,URINE YELLOW (Yellow); GLUCOSE, URINE NEGATIVE (Neg); KETONES,URINE NEGATIVE (Neg); LEUKOCYTE ESTERASE ,URINE NEGATIVE (Neg); NITRITES, URINE NEGATIVE (Neg); OCCULT BLOOD,URINE NEGATIVE (Neg); PROTEIN,URINE 100 mg/dl (Neg); UROBILINOGEN,URINE 0.2 E.U/dL (0.2-1.0)
[2023-01-21] MEDS ORDERED: LABETALOL IV SCH ×2 (07:50→08:00)
[2023-01-21] MEDS ORDERED: NORMAL SALINE IV SCH (07:50)
[2023-01-21 07:56] LABS: UA COLLECTION TYPE URINAL
[2023-01-21 07:57] LABS: SQUAMOUS EPITHELIAL CELL,UR FEW /LPF (FEW)
[2023-01-21 07:58] LABS: BACTERIA,URINE NONE SEEN /HPF (Neg); RBC,URINE 0-2 /HPF (0-2)
[2023-01-21] MEDS ORDERED: NS IV SCH (08:00)
[2023-01-21 08:05] LABS: URINE AMPHETAMINE SCREEN POSITIVE (Neg); URINE BARBITUATE SCREEN NEGATIVE (Neg); URINE BENZODIAZEPINES SCREEN NEGATIVE (Neg); URINE CANNABINOID SCREEN NEGATIVE (Neg); URINE COCAINE SCREEN NEGATIVE (Neg); URINE METHADONE SCREEN NEGATIVE (Neg); URINE OPIATE SCREEN NEGATIVE (Neg); URINE PHENCYCLIDINE SCREEN NEGATIVE (Neg)
[2023-01-21] MEDS ORDERED: aspirin 325mg tablet, delayed-release (Ecotrin) PO ONE (08:20)
[2023-01-21] MEDS ORDERED: magnesium 2GM in 50ml NS 50 ML IV PRN (08:35)
[2023-01-21] MEDS ORDERED: ondansetron/PF 4mg/2ml inj IV PRN (08:35)
[2023-01-21] MEDS ORDERED: acetaminophen 325mg tablet PO PRN ×2 (08:35)
[2023-01-21] MEDS ORDERED: potassium Cl 40MEQ/1/2NS 520ml 520 ML IV PRN (08:35)
[2023-01-21] MEDS ORDERED: potassium Cl 20 mEq SR tablet PO PRN ×2 (08:35)
[2023-01-21] MEDS ORDERED: magnesium 4gm in 100ml NS 100 ML IV PRN (08:35)
[2023-01-21] MEDS ORDERED: magnesium Cl slow-release 64mg tablet PO PRN (08:35)
[2023-01-21 08:50] LABS: FREE T4 (FREE THYROXINE) 1.15 NG/DL (0.73-1.40); THYROID STIMULATING HORMONE 4.48 ulU/ml (0.34-4.50)
[2023-01-21] MEDS ORDERED: CARV10CP7 PO (10:10)
[2023-01-21] MEDS ORDERED: FURO40TA4 PO (10:10)
[2023-01-21] MEDS: nicotine 14mg patch - 24hr TD SCH (10:51)
[2023-01-21 15:00] VITALS: RESP 18; O2SAT 95
[2023-01-21 18:00] VITALS: BP 161/111; PULSE 106; RESP 15; TEMP 98.2; O2SAT 96
[2023-01-21] MEDS: furosemide 20 MG/2 ML vial IV SCH (19:56)
[2023-01-21] MEDS: sacubitril/valsartan 24mg-26mg tablet PO SCH (19:56)
[2023-01-21] MEDS: carVEDilol 3.125mg tablet PO SCH (19:56)
[2023-01-21] MEDS: LORazepam 2 mg/ml vial IV PRN ×2 (19:56→23:12)
[2023-01-21] MEDS: enoxaparin 40mg/0.4ml syringe SQ SCH (19:56)
[2023-01-21 20:00] VITALS: RESP 21; O2SAT 97
[2023-01-21] MEDS ORDERED: furosemide 40mg/4ml inj IV SCH (20:00)
[2023-01-21 20:18] VITALS: BP 161/111; PULSE 106; RESP 15; TEMP 98.2; O2SAT 96
[2023-01-21 22:00] VITALS: BP 131/92; PULSE 99; RESP 21; TEMP 98.5; O2SAT 97
[2023-01-21] MEDS: temazepam 15mg capsule PO PRN (23:11)
[2023-01-22] VITALS (8 sets, daily range): BP systolic 137–166; BP diastolic 65–106; PULSE 100–109; RESP 14–27; TEMP 97.7–98.5; O2SAT 91–98
[2023-01-22] MEDS: temazepam 15mg capsule PO PRN (01:51)
[2023-01-22] MEDS: LORazepam 2 mg/ml vial IV PRN ×2 (01:51→22:34)
[2023-01-22 06:15] LABS: BASOPHILS # (AUTO) 0.1 X10'3 (0-0.2); BASOPHILS % (AUTO) 0.6 % (0-1); EOSINOPHILS # (AUTO) 0.1 X10'3 (0-0.9); EOSINOPHILS % (AUTO) 1.2 % (0-6); HEMATOCRIT 47.8 % (42.0-52.0); HEMOGLOBIN 15.4 g/dl (14.0-17.9); LYMPHOCYTES # (AUTO) 1.9 X10'3 (1.1-4.8); LYMPHOCYTES % (AUTO) 20.1 % (21-51); MEAN CORPUSCULAR HEMOGLOBIN 28.4 PG (27.0-31.0); MEAN CORPUSCULAR HGB CONC 32.3 g/dL (33.0-36.5); MEAN CORPUSCULAR VOLUME 87.9 FL (78-98); MEAN PLATELET VOLUME 7.6 FL (7.4-10.4); MONOCYTES # (AUTO) 0.8 X10'3 (0-0.9); MONOCYTES % (AUTO) 9.1 % (2-12); NEUTROPHILS # (AUTO) 6.4 X10'3 (1.8-7.7); PLATELET COUNT 340 X10'3 (140-440); RED BLOOD COUNT 5.44 X10'6 (4.70-6.10); RED CELL DISTRIBUTION WIDTH 16.9 % (11.5-14.5); WHITE BLOOD COUNT 9.3 X10'3 (4.5-11.0)
[2023-01-22 06:29] LABS: ALANINE AMINOTRANSFERASE 42 U/L (12-78); ALBUMIN 2.9 G/DL (3.4-5.0); ALBUMIN/GLOBULIN RATIO 0.7 (1.1-1.5); ALKALINE PHOSPHATASE 66 IU/L (46-116); ANION GAP 9 (8-16); ASPARTATE AMINO TRANSFERASE 36 U/L (10-37); BILIRUBIN,TOTAL 1.2 MG/DL (0.1-1.0); BLOOD UREA NITROGEN 24 MG/DL (7-18); BUN/CREATININE RATIO 21.8 (10.0-20.0); CALCIUM 9.1 MG/DL (8.5-10.1); CHLORIDE 104 MMOL/L (99-107); GLUCOSE 111 MG/DL (70-104); POTASSIUM 4.5 MMOL/L (3.5-5.1); SODIUM 136 MMOL/L (135-145); TOTAL CARBON DIOXIDE 22.8 MMOL/L (24-32); eCRCL 98 ML/MIN; eGFR 77 ML/MIN
[2023-01-22] MEDS: carVEDilol 3.125mg tablet PO SCH ×2 (08:00→19:47)
[2023-01-22] MEDS: nicotine 14mg patch - 24hr TD SCH (09:19)
[2023-01-22] MEDS: furosemide 20 MG/2 ML vial IV SCH ×2 (09:20→19:47)
[2023-01-22] MEDS: sacubitril/valsartan 24mg-26mg tablet PO SCH ×2 (10:52→20:00)
[2023-01-22] MEDS ORDERED: LORazepam 0.5 MG tablet PO PRN (19:15)
[2023-01-22] MEDS: enoxaparin 40mg/0.4ml syringe SQ SCH (19:47)
[2023-01-23] VITALS (8 sets, daily range): BP systolic 114–140; BP diastolic 59–93; PULSE 102–112; RESP 18–30; TEMP 97.9–98.2; O2SAT 97–98
[2023-01-23] MEDS: temazepam 15mg capsule PO PRN (04:08)
[2023-01-23] MEDS: LORazepam 2 mg/ml vial IV PRN (06:07)
[2023-01-23] MEDS: nicotine 14mg patch - 24hr TD SCH (08:00)
[2023-01-23] MEDS: furosemide 20 MG/2 ML vial IV SCH ×2 (08:00→19:33)
[2023-01-23] MEDS: carVEDilol 3.125mg tablet PO SCH ×2 (09:44→19:33)
[2023-01-23] MEDS: sacubitril/valsartan 24mg-26mg tablet PO SCH ×2 (11:13→19:33)
[2023-01-23] MEDS: enoxaparin 40mg/0.4ml syringe SQ SCH (19:33)
[2023-01-24] MEDS: temazepam 15mg capsule PO PRN (01:04)
[2023-01-24 02:00] VITALS: BP 156/91; PULSE 108; RESP 20; TEMP 97; O2SAT 96
[2023-01-24 07:03] LABS: BASOPHILS # (AUTO) 0.1 X10'3 (0-0.2); BASOPHILS % (AUTO) 0.8 % (0-1); EOSINOPHILS # (AUTO) 0.1 X10'3 (0-0.9); HEMATOCRIT 46.1 % (42.0-52.0); LYMPHOCYTES % (AUTO) 20.2 % (21-51); MEAN CORPUSCULAR HEMOGLOBIN 28.4 PG (27.0-31.0); MEAN CORPUSCULAR HGB CONC 32.6 g/dL (33.0-36.5); MEAN CORPUSCULAR VOLUME 87.1 FL (78-98); MEAN PLATELET VOLUME 7.9 FL (7.4-10.4); MONOCYTES # (AUTO) 1.1 X10'3 (0-0.9); MONOCYTES % (AUTO) 11.3 % (2-12); NEUTROPHILS # (AUTO) 6.7 X10'3 (1.8-7.7); NEUTROPHILS % (AUTO) 66.7 % (42-75); PLATELET COUNT 335 X10'3 (140-440); RED BLOOD COUNT 5.29 X10'6 (4.70-6.10); RED CELL DISTRIBUTION WIDTH 16.9 % (11.5-14.5)
[2023-01-24 07:29] LABS: ALANINE AMINOTRANSFERASE 32 U/L (12-78); ALBUMIN 2.8 G/DL (3.4-5.0); ALBUMIN/GLOBULIN RATIO 0.6 (1.1-1.5); ALKALINE PHOSPHATASE 76 IU/L (46-116); ANION GAP 12 (8-16); ASPARTATE AMINO TRANSFERASE 31 U/L (10-37); BLOOD UREA NITROGEN 36 MG/DL (7-18); BUN/CREATININE RATIO 24.3 (10.0-20.0); CALCIUM 8.9 MG/DL (8.5-10.1); CHLORIDE 102 MMOL/L (99-107); CREATININE 1.48 MG/DL (0.60-1.10); GLUCOSE 102 MG/DL (70-104); POTASSIUM 4.9 MMOL/L (3.5-5.1); SODIUM 135 MMOL/L (135-145); TOTAL CARBON DIOXIDE 21.3 MMOL/L (24-32); TOTAL PROTEIN 7.2 G/DL (6.4-8.2); eCRCL 73 ML/MIN; eGFR 54 ML/MIN
[2023-01-24 08:00] VITALS: RESP 21; O2SAT 95
[2023-01-24] MEDS: furosemide 20 MG/2 ML vial IV SCH (09:22)
[2023-01-24] MEDS: nicotine 14mg patch - 24hr TD SCH (09:23)
[2023-01-24] MEDS: enoxaparin 40mg/0.4ml syringe SQ SCH (09:23)
[2023-01-24] MEDS: sacubitril/valsartan 24mg-26mg tablet PO SCH (09:25)
[2023-01-24] MEDS: carVEDilol 3.125mg tablet PO SCH (09:25)
[2023-01-24] MEDS ORDERED: FURO20TA4 PO (10:56)
[2023-01-24] MEDS ORDERED: NICO-631 TD (10:56)
[2023-01-24] MEDS ORDERED: COR3.125T PO (10:56)
[2023-01-24] MEDS ORDERED: LOSA50TA64 PO (10:56)
[2023-01-24 11:00] VITALS: BP 126/87; PULSE 103; RESP 29; TEMP 97.4; O2SAT 99
[2023-01-24 15:00] VITALS: BP 131/90; PULSE 104; RESP 21; TEMP 97.8; O2SAT 95
[2023-01-24] MEDS ORDERED: SPIR25TA5 PO (16:28)
== END 2023-01-24 16:40 | disposition home or self-care (01) | DRG 194 ==
LOC: ER 06:25 → ED HOLD 08:34 → PCU 3S 14:25
PROVIDERS: ADMIT Internal Medicine; ATTEND Internal Medicine
DX: I13.0 Hypertensive heart and chronic kidney disease with heart failure and stage 1 through stage 4 chronic kidney disease, or unspecified chronic kidney disease (principal); I44.2 Atrioventricular block, complete; I27.20 Pulmonary hypertension, unspecified; I42.9 Cardiomyopathy, unspecified; I50.23 Acute on chronic systolic (congestive) heart failure; F15.10 Other stimulant abuse, uncomplicated; I16.0 Hypertensive urgency; N18.30 Chronic kidney disease, stage 3 unspecified; Z86.19 Personal history of other infectious and parasitic diseases; Z87.01 Personal history of pneumonia (recurrent); Z87.891 Personal history of nicotine dependence; Z79.899 Other long term (current) drug therapy; Z86.73 Personal history of transient ischemic attack (TIA), and cerebral infarction without residual deficits; Z71.6 Tobacco abuse counseling; Z91.148 Patient's other noncompliance with medication regimen for other reason
CPT/HCPCS: 36415; 71045; 80053; 80305; 81001; 83735; 83880; 84439; 84443; 84484; 85025; 87081; 93005; 93306; 97161; 97530; 99285; A4615; G0378; J0360; J1650; J1940; J2060; J3490

== ENCOUNTER 2023-04-19 18:36 | Emergency (ER) | payer MEDICAID ==
[~2023-04-19] VITALS: Ht 170.2 cm; Wt 99.8 kg
[~2023-04-19 18:36] MED LIST changes: -AMLO2.5T5 PO; -ASPI-1144 PO; -ATOR40TA72 PO; -CARV3.122 PO; +COR3.125T PO; +LOSA50TA64 PO; +NICO-631 TD; -PANT40TA54 PO; -QUET25TA36 PO; -SACU1TAB7 PO; +SPIR25TA5 PO
[2023-04-19 20:37] LABS: BASOPHILS # (AUTO) 0.1 X10'3 (0-0.2); BASOPHILS % (AUTO) 0.4 % (0-1); EOSINOPHILS # (AUTO) 0.1 X10'3 (0-0.9); EOSINOPHILS % (AUTO) 1.2 % (0-6); HEMOGLOBIN 16.9 g/dl (14.0-17.9); LYMPHOCYTES # (AUTO) 1.9 X10'3 (1.1-4.8); LYMPHOCYTES % (AUTO) 15.9 % (21-51); MEAN CORPUSCULAR HEMOGLOBIN 28.9 PG (27.0-31.0); MEAN CORPUSCULAR HGB CONC 33.1 g/dL (33.0-36.5); MEAN CORPUSCULAR VOLUME 87.1 FL (78-98); MEAN PLATELET VOLUME 8.5 FL (7.4-10.4); MONOCYTES # (AUTO) 1.3 X10'3 (0-0.9); MONOCYTES % (AUTO) 10.5 % (2-12); NEUTROPHILS # (AUTO) 8.7 X10'3 (1.8-7.7); PLATELET COUNT 193 X10'3 (140-440); RED BLOOD COUNT 5.86 X10'6 (4.70-6.10); RED CELL DISTRIBUTION WIDTH 18.5 % (11.5-14.5); WHITE BLOOD COUNT 12.1 X10'3 (4.5-11.0)
[2023-04-19 21:04] LABS: ALANINE AMINOTRANSFERASE 66 U/L (12-78); ALBUMIN 3.7 G/DL (3.4-5.0); ALBUMIN/GLOBULIN RATIO 0.8 (1.1-1.5); ALKALINE PHOSPHATASE 93 IU/L (46-116); ANION GAP 10 (8-16); ASPARTATE AMINO TRANSFERASE 36 U/L (10-37); BLOOD UREA NITROGEN 17 MG/DL (7-18); BUN/CREATININE RATIO 15.6 (10.0-20.0); CALCIUM 9.2 MG/DL (8.5-10.1); CHLORIDE 102 MMOL/L (99-107); CREATININE 1.09 MG/DL (0.60-1.10); GLUCOSE 108 MG/DL (70-104); POTASSIUM 3.9 MMOL/L (3.5-5.1); SODIUM 140 MMOL/L (135-145); TOTAL CARBON DIOXIDE 28.5 MMOL/L (24-32); TOTAL PROTEIN 8.2 G/DL (6.4-8.2); eCRCL 89 ML/MIN; eGFR 77 ML/MIN
[2023-04-19 21:07] LABS: C-REACTIVE PROTEIN 4.19 MG/DL (0.0-0.5)
[2023-04-19 21:16] LABS: URIC ACID 6.4 MG/DL (3.5-7.2)
[2023-04-19] MEDS ORDERED: SULF1TAB48 PO (21:35)
[2023-04-19] MEDS ORDERED: PRED20TA PO (21:35)
[2023-04-19 21:44] VITALS: BP 140/101; PULSE 104; RESP 16; TEMP 99.1; O2SAT 96
== END 2023-04-19 21:47 | disposition home or self-care (01) ==
LOC: ER 18:37
DX: M10.9 Gout, unspecified (principal); L03.113 Cellulitis of right upper limb; I27.20 Pulmonary hypertension, unspecified; I50.9 Heart failure, unspecified; Z79.899 Other long term (current) drug therapy
CPT/HCPCS: 36415; 73080; 80053; 83605; 84145; 84550; 85025; 85651; 86140; 87040; 99284